=== PATIENT | female | born 1990 | race Caucasian/White ===

== ENCOUNTER 2017-10-08 07:26 | Inpatient (IN) | payer OTHER ==
[2017-10-08] MEDS ORDERED: BUTORPHANOL 1 MG/ML INJ IV PRN (07:47)
[2017-10-08] MEDS ORDERED: PROMETHAZINE 25 MG/ML VIAL IV PRN (07:47)
[2017-10-08] MEDS ORDERED: CARBOPROST TROME 250 MCG/ML IM PRN (07:47)
[2017-10-08] MEDS ORDERED: Ringers Lactate 1,000 ML IV PRN (07:47)
[2017-10-08] MEDS ORDERED: METHYLERGONOVINE 0.2MG/ML AMP IM PRN (07:47)
[2017-10-08] MEDS ORDERED: Ringers Lactate 1,000 ML IV SCH (08:00)
[2017-10-08] MEDS ORDERED: OXYTOCIN/LR 20 UNIT/1,000 ML BAG IV SCH (08:00)
[2017-10-08 08:09] LABS: RPR Titer ND
[2017-10-08 08:34] LABS: Urine Appearance CLEAR; Urine Bilirubin NEGATIVE (NEG); Urine Blood NEGATIVE (NEG); Urine Color YELLOW; Urine Glucose NEGATIVE (NEG); Urine Protein NEGATIVE (NEG); Urine Specific Gravity 1.015 (1.005-1.030); Urine pH 6.5 (5.0-7.0)
[2017-10-08 08:42] LABS: Urine Microscopic Reflex ORDER UMIC
[2017-10-08 08:43] LABS: Absolute Neutrophil 10.9 K/uL (1.8-8.0); Basophils % 0.4 % (0-1.3); Eosinophils % 1.6 % (0-4.4); Hematocrit 40.8 % (36.0-45.0); Lymphocytes % 19.9 % (15.3-44.8); MCH 33.7 pg (27.0-35.0); MCV 96.2 fL (80-100); MPV 8.5 fL (7.6-11.3); Monocytes % 6.5 % (3.3-12.3); RBC Red Blood Cell Count 4.24 M/uL (3.86-4.86)
[2017-10-08 08:58] LABS: Urine Bacteria <20 /HPF (<20); Urine RBC <5 /HPF (NONE SEEN)
[2017-10-08 08:59] LABS: Calcium Oxalate Crystals- Ur FEW (NONE SEEN); Urine Culture Reflex Order REFLEXED
[2017-10-08 09:26] VITALS: BMI 30.8
[2017-10-08] MEDS ORDERED: LIDOCAINE 2% INJ, 20 mL 20 ML ONE (19:01)
[2017-10-08] MEDS ORDERED: IBUPROFEN 200 MG TAB PO PRN (19:23)
[2017-10-08] MEDS ORDERED: Oxycodone HCl/Acetaminophen 1 TAB TAB PO PRN (19:23)
[2017-10-08] MEDS ORDERED: ONDANSETRON 4 MG (ODT) TAB PO PRN (19:23)
[2017-10-08] MEDS ORDERED: ACETAMINOPHEN 500 MG TAB PO PRN (19:23)
[2017-10-08] MEDS ORDERED: BISACODYL 10 MG RECTAL SUPP RECT PRN (19:23)
[2017-10-08] MEDS ORDERED: DOCUSATE NA/SENNA CONC 1 TAB PO PRN (19:23)
[2017-10-08] MEDS ORDERED: METHYLERGONOVINE 0.2 MG TAB PO PRN (19:23)
--- NOTE | 2017-10-08 22:34 | P.OBGYNHP ---
Certification for Inpatient Patient admitted to: Inpatient With expected LOS: >2 Midnights Patient will require the following post-hospital care: None Practitioner: I am a practitioner with admitting privileges, knowledge of patient current condition, hospital course, and medical plan of care. Services: Services provided to patient in accordance with Admission requirements found in Title 42 Section 412.3 of the Code of Federal Regulations Patient History Date of Service: 11/10/17 Reason for admission: induction of labor History of Present Illness: Patient is a 27-year-old 2 para 0010 who presents at 39 weeks and 3 days gestational 40 like a induction of labor. she is overall doing well. She has been complaining of contractions that are occurring very irregularly. She denies vaginal bleeding. She denies leakage of fluid. She reports good movements. She has obtained care with me beginning early in the 1st trimester. She had a drug screen done in the firtst trimester and was positive for marijuana. Since first visit she has had multiple drug screens done and they have been negative. She has also been following up [facility] for care. Ultrasound findings have been within normal. See record for further details. Allergies codeine Allergy (Intermediate, Verified 10/08/17 08:27) Hives/Rash Home Medications: Pnv Cmb#95/Ferrous Fumarate/FA [ Tablet] 1 each PO DAILY 10/08/17 - Past Medical/Surgical History Has patient received pneumonia vaccine in the past: No Diabetic: No -: SAB x1 -: Exploratory lap at age 16 -: Appendectomy - Social History Smoking Status: Former smoker Alcohol use: No CD- Drugs: No Caffeine use: Yes Place of Residence: Home Review of Systems 10-point ROS is otherwise unremarkable Physical Examination - Vital Signs Temperature: 97.6 F Blood Pressure: 106/60 Pulse: 74 Respirations: 18 - General General: Alert, Oriented x3, Mild distress HEENT: Atraumatic, Normocephalic Neck: Supple Respiratory: Normal air movement Cardiovascular: No edema, Normal pulses Capillary refill: <2 Seconds Breasts: Normal configuration Gastrointestinal: Other (Gravid) Neurological: Normal gait, Normal speech - Female Pelvic External genitalia: Normal Vagina: Normal, Bright, Moist Cervix: Dilation (2cm), Effacement (50%), station (-3) Uterus: Gravid, Firm Adnexa: Unable to evaluate - Obstetrics heart rate tracing: Category 2 Contractions: Other (irregular) Amniotic membrane: AROM (clear fluid noted ) Laboratory Data (last 24 hrs) 10/08/17 07:37: WBC 15.2 H, Hgb 14.3, Hct 40.8, Plt Count 319 Assessment and Plan - Plan Patient is a 27 y/o at 39 weeks and 3 days gestation who presents for elective induction of labor. Patient is GBS negative. Rupture of membranes performed. Epidural placement at patient's request. Continuous and maternal monitoring. Anticipate vaginal . Discharge Plan: Home Plan to discharge in: 48 Hours - Advance Directives Does patient have a Living Will: No Does patient have a Durable POA for Healthcare: No
--- NOTE | 2017-10-08 22:34 | P.OP ---
Date of Service: 10/08/17 Findings and Operative Technique Patient delivered a viable male in cephalic presentation on 10/08/17 at 18 :59. was delivered over a midline episiotomy. Once infant was delivered nose and mouth were suctioned with a suction bulb cord was clamped and cut. was then placed on mother's abdomen for skin to skin bonding. Attention was then turned to the placenta which was delivered at 7:01 p.m. placenta was examined and noted to be intact. Attention was then turned to the midline episiotomy which was repaired with a 3.0 and 2.0 Vicryl in the usual fashion. Apgars were 9 and 9. Weight was found to be 6 lb 15 oz. Estimated blood loss was 300 cc. Both mom and baby are doing well.
[2017-10-08 22:49] LABS: RPR (Rapid Plasma Reagin) NON-REACT (NON-REACT)
[2017-10-08] MEDS: Oxycodone HCl/Acetaminophen 1 TAB TAB PO PRN (23:05)
[2017-10-09 07:28] LABS: Absolute Lymphocytes (CBC) 3.3 K/uL (0.7-4.9); Absolute Monocytes 1.2 K/uL (0.1-1.3); Absolute Neutrophil 14.1 K/uL (1.8-8.0); Basophils % 0.2 % (0-1.3); Eosinophils % 0.5 % (0-4.4); Hematocrit 33.2 % (36.0-45.0); Lymphocytes % 17.5 % (15.3-44.8); MCH 35.2 pg (27.0-35.0); MCV 95.5 fL (80-100); MPV 7.8 fL (7.6-11.3); Monocytes % 6.6 % (3.3-12.3); RBC Red Blood Cell Count 3.47 M/uL (3.86-4.86)
[2017-10-09] MEDS: Oxycodone HCl/Acetaminophen 1 TAB TAB PO PRN ×2 (07:32→21:10)
[2017-10-09 10:06] LABS: Barbiturates NEGATIVE (NEGATIVE); Benzodiazepines NEGATIVE (NEGATIVE); Cocaine NEGATIVE (NEGATIVE); METHAMPHETAM NEGATIVE (NEGATIVE); Methadone NEGATIVE (NEGATIVE); Opiates NEGATIVE (NEGATIVE); Phencyclidine NEGATIVE (NEGATIVE); THC Cannibis NEGATIVE (NEGATIVE)
[2017-10-10 04:02] LABS: HBsAG Nonreactive (Nonreactive)
[2017-11-10 11:24] VITALS: BP 106/60; TEMP 97.6
--- NOTE | 2017-11-10 11:40 | P.DS ---
Admission Date: 10/08/17 Discharge Date: 10/09/17 Disposition: ROUTINE DISCHARGE Discharge Condition: GOOD Reason for Admission: induction of labor Brief History of Present Illness: Patient is a 27-year-old 2 para 0010 who presents at 39 weeks and 3 days gestational 40 like a induction of labor. she is overall doing well. She has been complaining of contractions that are occurring very irregularly. She denies vaginal bleeding. She denies leakage of fluid. She reports good movements. She has obtained care with pr beginning early in the 1st trimester. She had a drug screen done in the firtst trimester and was positive for marijuana. Since first visit she has had multiple drug screens done and they have been negative. She has also been following up [facility] for care. Ultrasound findings have been within normal. See record for further details. Hospital Course: patient did well following delivery. She is bonding well with baby. She has no pain. She is ambulating without difficulty She has not had any fevers. No chills. No nausea or vomiting. She is tolerating a regular diet. Vital Signs/Physical Exam: Temp Pulse Resp BP Pulse Ox 97.6 F 74 18 106/60 11/10/17 11:31 11/10/17 11:31 11/10/17 11:31 11/10/17 11:31 General: Alert, In no apparent distress HEENT: Atraumatic Neck: Supple Respiratory: Normal air movement Cardiovascular: No edema Laboratory Data at Discharge: WBC 18.7 K/uL (4.3-10.9) H D 10/09/17 06:58 Hgb 12.2 g/dL (12.0-15.0) 10/09/17 06:58 Hct 33.2 % (36.0-45.0) L D 10/09/17 06:58 Plt Count 303 K/uL (152-406) 10/09/17 06:58 Home Medications: Pnv Cmb#95/Ferrous Fumarate/FA [ Tablet] 1 each PO DAILY 10/08/17 Diet: Regular Activity: No lifting more than 10 lbs Followup: Andrzej Islas, [ACTIVE - CAN ADMIT] -
== END 2017-10-09 21:55 | disposition home or self-care (01) | DRG 775 ==
LOC: 2ND-WC 07:26
PROVIDERS: ADMIT Student in an Organized Health Care Education/Training Program; ATTEND Student in an Organized Health Care Education/Training Program
PROC: 10E0XZZ Delivery of Products of Conception, External Approach (ICD-10-PCS; principal; 2017-10-08)
PROC: 10907ZC Drainage of Amniotic Fluid, Therapeutic from Products of Conception, Via Natural or Artificial Opening (ICD-10-PCS; 2017-10-08)
PROC: 0W8NXZZ Division of Female Perineum, External Approach (ICD-10-PCS; 2017-10-08)
DX: O80 Encounter for full-term uncomplicated delivery (principal); Z3A.39 39 weeks gestation of pregnancy; Z37.0 Single live birth; Z87.891 Personal history of nicotine dependence; Z88.5 Allergy status to narcotic agent
CPT/HCPCS: 36415; 80307; 81003; 81015; 85025; 86592; 86901; 87086; 87088; 87340; 88307; J0595; J2210; J2590

== ENCOUNTER 2018-02-24 11:33 | Emergency (ER) | payer OTHER ==
[2018-02-24] MEDS ORDERED: PROMETHAZINE 25 MG/ML VIAL ONE (12:52)
[2018-02-24] MEDS ORDERED: NA CHLORIDE 0.9% 1,000 ML ONE (12:52)
--- NOTE | 2018-02-24 13:00 | RAD REPORT ---
EXAM DESCRIPTION: RAD - Chest Single View - 02/24/2018 12:42 pm CLINICAL HISTORY: Cough and congestion COMPARISON: April 2013 TECHNIQUE: AP portable chest image was obtained 1236 hours . FINDINGS: Lungs are clear. Heart and vasculature are normal. No measurable pleural effusion and no p neumothorax. No acute bony abnormality seen. No acute aortic findings suspected. IMPRESSION: No acute cardiopulmonary process. No significant interval change.
[2018-02-24 13:15] LABS: Absolute Lymphocytes (CBC) 1.6 K/uL (0.7-4.9); Absolute Neutrophil 4.4 K/uL (1.8-8.0); Basophils % 0.7 % (0-1.3); Eosinophils % 0.3 % (0-4.4); Hematocrit 48.6 % (36.0-45.0); Lymphocytes % 23.2 % (15.3-44.8); MPV 7.8 fL (7.6-11.3); Monocytes % 13.5 % (3.3-12.3); RBC Red Blood Cell Count 5.35 M/uL (3.86-4.86)
[2018-02-24 13:25] LABS: Potassium 3.7 mmol/L (3.5-5.1)
--- NOTE | 2018-02-24 14:00 | ER ---
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 Transition of care: patient was not received from another setting of care. Onset of symptoms was February 24, 2018. Risk Assessment: Do you want to hurt yourself or someone else? Patient reports no desire to harm self or others. Initial Sepsis Screen: Does the patient meet any 2 criteria? No. Patient's initial sepsis screen is negative. Care prior to arrival: None. 12:00 Method Of Arrival: Ambulatory ph 12:00 Acuity: JAVIER 3 ph 14:21 Initial Sepsis Screen: Does the patient have a suspected source of infection? No. bp Patient's initial sepsis screen is negative. Triage Assessment: 14:18 General: Appears in no apparent distress. comfortable, Behavior is cooperative, bp appropriate for age, anxious. Respiratory: Reports cough that is Onset: The symptoms/episode began/occurred at an unknown time. the patient has mild shortness of breath. 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 - Social history:: Smoking status: Patient/guardian denies using tobacco. - Ebola Screening: : No symptoms or risks identified at this time. Screenin:16 Abuse screen: Denies threats or abuse. Denies injuries from another. Nutritional bp screening: No deficits noted. Tuberculosis screening: No symptoms or risk factors identified. Fall Risk None identified. Assessment: 12:14 General: Appears in no apparent distress. comfortable, Behavior is calm, cooperative, bp appropriate for age. Pain: Denies pain. Neuro: Level of Consciousness is awake, alert, obeys commands, Oriented to person, place, time, situation, Appropriate for age. Cardiovascular: Rhythm is sinus tachycardia. Respiratory: Airway is patent Respiratory effort is even, labored, Breath sounds with crackles bilaterally. GI: No signs and/or symptoms were reported involving the gastrointestinal system. : No signs and/or symptoms were reported regarding the genitourinary system. EENT: Nares with drainage noted. Derm: No deficits noted. Musculoskeletal: Circulation, motion, and sensation intact. Range of motion: intact in all extremities. Vital Signs: 12:02 Pulse 125; Resp 24; Temp 97.6(TE); Pulse Ox 98% on R/A; Weight 65.32 kg; Height 5 ft. 2 ph in. (157.48 cm); 14:17 BP 131 / 54; Pulse 100; Resp 24; Temp 97.9; Pulse Ox 99% ; bp 12:02 Body Mass Index 26.34 (65.32 kg, 157.48 cm) ph ED Course: 11:36 Patient arrived in ED. rg4 11:53 Mychal Henderson MD is Attending Physician. kdr 11:59 Marvel Barrera RN is Primary Nurse. bp 12:02 Triage completed. ph 12:04 Arm band placed on. ph 12:16 Patient has correct armband on for positive identification. Bed in low position. Call bp light in reach. Side rails up X2. Adult w/ patient. 12:41 X-ray completed. Portable x-ray completed in exam room. Patient tolerated procedure mh1 well. 12:42 CXR XRAY In Process Unspecified. EDMS 12:45 Inserted saline lock: 20 gauge in right antecubital area, using aseptic technique. bp Blood collected. 14:19 No provider procedures requiring assistance completed. IV discontinued, intact, bp bleeding controlled, No redness/swelling at site. Pressure dressing applied. Administered Medications: 12:45 Drug: NS 0.9% 1000 ml Route: IV; Rate: 1 bolus; Site: right antecubital; bp 14:00 Follow up: IV Status: Completed infusion; IV Intake: 1000ml bp 12:45 Drug: Phenergan 12.5 mg Route: IVP; Site: right antecubital; bp 14:00 Follow up: Response: No adverse reaction; Nausea is decreased bp 14:05 Drug: Augmentin 875 mg Route: PO; bp 14:18 Follow up: Response: Medication administered at discharge. bp Intake: 14:00 IV: 1000ml; Total: 1000ml. bp Outcome: 13:59 Discharge ordered by . kdr 14:20 Discharged to home ambulatory, with family. bp 14:20 Condition: stable 14:20 Discharge instructions given to patient, family, Instructed on discharge instructions, follow up and referral plans. medication usage, Demonstrated understanding of instructions, follow-up care, medications, Prescriptions given X 1. 14:23 Patient left the ED. bp Signatures: Dispatcher [employer] EDMS Mychal Henderson MD MD kdr Harvey, Martha mh1 Monique Strauss RN RN Rachel Metzger 4 Marvel Barrera, RN RN bp
--- NOTE | 2018-02-24 14:00 | EDPHYS ---
Physician Documentation [facility] Name: Jonatan Gray Age: 28 yrs Sex: Female : 1990 Arrival Date: 02/24/2018 Time: 11:36 Bed 18 Private MD: ED Physician Mychal Henderson HPI: 02/24 14:42 This 28 yrs old Female presents to ER via Ambulatory with complaints of kdr Breathing Difficulty, Cough. 14:42 The patient has shortness of breath at rest, with light activity. Onset: The kdr symptoms/episode began/occurred gradually, 4 day(s) ago. Duration: The symptoms are continuous, and are steadily getting worse. The patient's shortness of breath is aggravated by coughing, exertion, light activity. Associated signs and symptoms: Pertinent positives: non-productive cough, fever, nausea. Severity of symptoms: At their worst the symptoms were moderate in the emergency department the symptoms. The patient has not experienced similar symptoms in the past. The patient has been recently seen by a physician:. 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 - Social history:: Smoking status: Patient/guardian denies using tobacco. - Ebola Screening: : No symptoms or risks identified at this time. ROS: 14:42 Constitutional: Negative for chills, and weight loss - has had subjective fever Eyes: kdr Negative for injury, pain, redness, and discharge, Neck: Negative for injury, pain, and swelling, Cardiovascular: Negative for chest pain, palpitations, and edema, Abdomen/GI: Negative for abdominal pain, nausea, vomiting, diarrhea, and constipation, Back: Negative for injury and pain, : Negative for injury, bleeding, discharge, and swelling, MS/Extremity: Negative for injury and deformity, Skin: Negative for injury, rash, and discoloration, Neuro: Negative for headache, weakness, numbness, tingling, and seizure activity. Psych: Negative for depression, anxiety, suicide ideation, homicidal ideation, and hallucinations, Allergy/Immunology: Negative for hives, rash, and allergies, Endocrine: Negative for neck swelling, polydipsia, polyuria, polyphagia, and marked weight changes, Hematologic/Lymphatic: Negative for swollen nodes, abnormal bleeding, and unusual bruising. 14:42 Respiratory: Positive for cough, "sounds productive", shortness of breath, wheezing, Negative for hemoptysis, orthopnea, pleurisy. Exam: 14:42 Constitutional: This is a well developed, well nourished patient who is awake, alert, kdr and in no acute distress. Head/Face: Normocephalic, atraumatic. Eyes: Pupils equal round and reactive to light, extra-ocular motions intact. Lids and lashes normal. Conjunctiva and sclera are non-icteric and not injected. Cornea within normal limits. Periorbital areas with no swelling, redness, or edema. Neck: Trachea midline, no thyromegaly or masses palpated, and no cervical lymphadenopathy. Supple, full range of motion without nuchal rigidity, or vertebral point tenderness. No Meningismus. Chest/axilla: Normal chest wall appearance and motion. Nontender with no deformity. No lesions are appreciated. Cardiovascular: Regular rate and rhythm with a normal S1 and S2. No gallops, murmurs, or rubs. Normal PMI, no JVD. No pulse deficits. Abdomen/GI: Soft, non-tender, with normal bowel sounds. No distension or tympany. No guarding or rebound. No evidence of tenderness throughout. Back: No spinal tenderness. No costovertebral tenderness. Full range of motion. Skin: Warm, dry with normal turgor. Normal color with no rashes, no lesions, and no evidence of cellulitis. MS/ Extremity: Pulses equal, no cyanosis. Neurovascular intact. Full, normal range of motion. Neuro: Awake and alert, GCS 15, oriented to person, place, time, and situation. Cranial nerves II-XII grossly intact. Motor strength 5/5 in all extremities. Sensory grossly intact. Cerebellar exam normal. Normal gait. Psych: Awake, alert, with orientation to person, place and time. Behavior, mood, and affect are within normal limits. 14:42 Respiratory: mild respiratory distress is noted, Respirations: no acute changes, Breath sounds: rales, rhonchi, wheezing: that is mild, is heard diffusely. Vital Signs: 12:02 Pulse 125; Resp 24; Temp 97.6(TE); Pulse Ox 98% on R/A; Weight 65.32 kg; Height 5 ft. 2 ph in. (157.48 cm); 14:17 BP 131 / 54; Pulse 100; Resp 24; Temp 97.9; Pulse Ox 99% ; bp 12:02 Body Mass Index 26.34 (65.32 kg, 157.48 cm) ph MDM: 13:59 Patient medically screened. kdr 14:42 Data reviewed: vital signs, nurses notes, lab test result(s), radiologic studies. kdr Counseling: I had a detailed discussion with the patient and/or guardian regarding: the historical points, exam findings, and any diagnostic results supporting the discharge/admit diagnosis, lab results, radiology results, the need for outpatient follow up. 02/24 12:31 Order name: CBC with Diff; Complete Time: 13:20 kdr 02/24 12:31 Order name: Chem 7; Complete Time: 13:47 kdr 02/24 12:31 Order name: CXR XRAY; Complete Time: 13:20 kdr Administered Medications: 12:45 Drug: NS 0.9% 1000 ml Route: IV; Rate: 1 bolus; Site: right antecubital; bp 14:00 Follow up: IV Status: Completed infusion; IV Intake: 1000ml bp 12:45 Drug: Phenergan 12.5 mg Route: IVP; Site: right antecubital; bp 14:00 Follow up: Response: No adverse reaction; Nausea is decreased bp 14:05 Drug: Augmentin 875 mg Route: PO; bp 14:18 Follow up: Response: Medication administered at discharge. bp Disposition: 02/24/18 13:59 Discharged to Home. Impression: Bronchitis, not specified as acute or chronic, Cough. - Condition is Stable. - Discharge Instructions: Cool Mist Vaporizer, Acute Bronchitis, Nuaq-se-[id number], Upper Respiratory Infection, Adult, Refd-vu-Aukk, Cough, Adult, Rjil-ov-Fgpy. - Prescriptions for Promethazine VC 6.25- 5 mg/5 mL Oral syrup - take 5 milliliter by ORAL route every 4 hours As needed as needed; 200 milliliter. - Medication Reconciliation Form, Thank You Letter, Antibiotic Education, Prescription Opioid Use form. - Follow up: Private Physician; When: 2 - 3 days; Reason: If symptoms return, Further diagnostic work-up, Recheck today's complaints, Continuance of care, Re-evaluation by your physician. - Problem is an ongoing problem. - Symptoms have improved. Signatures: Dispatcher [employer] EDMS Mychal Henderson MD MD kdr Monique Strauss RN RN Marvel Barrera RN RN bp Corrections: (The following items were deleted from the chart) 14:23 13:59 02/24/2018 13:59 Discharged to Home. Impression: Bronchitis, not specified as bp acute or chronic; Cough. Condition is Stable. Forms are Medication Reconciliation Form, Thank You Letter, Antibiotic Education, Prescription Opioid Use. Follow up: Private Physician; When: 2 - 3 days; Reason: If symptoms return, Further diagnostic work-up, Recheck today's complaints, Continuance of care, Re-evaluation by your physician. Problem is an ongoing problem. Symptoms have improved. kdr 14:49 14:42 The patient has not recently seen a physician, [facility] kdr
[2018-02-24] MEDS ORDERED: AMOX/K CLAV 875 MG TAB ONE (14:13)
[2018-02-24 14:31] VITALS: BP 131/54; TEMP 97.9; O2SAT 99
== END 2018-02-24 14:23 | disposition home or self-care (01) ==
LOC: ER 11:33
DX: J40 Bronchitis, not specified as acute or chronic (principal)
CPT/HCPCS: 36415; 71045; 80048; 85025; 96361; 96374; 99284; J2550; J7030

== ENCOUNTER 2018-10-16 03:47 | Inpatient (IN) | payer OTHER ==
[2018-10-16] MEDS ORDERED: METHYLERGONOVINE 0.2MG/ML AMP IM PRN (05:45)
[2018-10-16] MEDS ORDERED: BUTORPHANOL 1 MG/ML INJ IV PRN (05:45)
[2018-10-16] MEDS ORDERED: PENICILLIN 5 MU in NA CHLORIDE 0.9% 100 ML IV ONE (05:45)
[2018-10-16] MEDS ORDERED: MIDAZOLAM HCL 2 MG/2 ML INJ IV PRN (05:45)
[2018-10-16] MEDS ORDERED: PROMETHAZINE 25 MG/ML VIAL IM PRN (05:45)
[2018-10-16] MEDS ORDERED: MEPERIDINE HCL 25 MG/0.5 ML IV PRN (05:45)
[2018-10-16] MEDS ORDERED: Ringers Lactate 1,000 ML IV PRN (05:45)
[2018-10-16] MEDS ORDERED: LIDOCAINE 1% MPF 30 ML VIAL SQ ONE (05:49)
[2018-10-16] MEDS ORDERED: FENTANYL CITR 100 MCG/2 ML IV PRN (05:52)
[2018-10-16] MEDS ORDERED: FENTANYL/BUPIVACAINE/NS/PF 200 MCG/100 ML BAG EP PRN (05:52)
[2018-10-16] MEDS ORDERED: BUPIVACAINE 0.25% PF 10 ML VIAL IV PRN (05:52)
[2018-10-16] MEDS ORDERED: LIDOCAINE 1% MPF 30 ML VIAL SQ PRN (05:54)
[2018-10-16] MEDS ORDERED: Ringers Lactate 1,000 ML IV SCH (06:00)
[2018-10-16 06:31] LABS: Urine Appearance CLEAR; Urine Bilirubin NEGATIVE (NEG); Urine Blood NEGATIVE (NEG); Urine Color YELLOW; Urine Glucose NEGATIVE (NEG); Urine Protein NEGATIVE (NEG)
[2018-10-16] MEDS ORDERED: OXYTOCIN/LR 20 UNIT/1,000 ML BAG IV ONE (06:37)
[2018-10-16 06:44] LABS: Urine Microscopic Reflex ORDER UMIC
[2018-10-16 06:45] LABS: Urine Bacteria <20 /HPF (<20); Urine Culture Reflex Order REFLEXED; Urine RBC <5 /HPF (NONE SEEN)
[2018-10-16 06:55] LABS: Absolute Lymphocytes (CBC) 2.9 K/uL (0.7-4.9); Basophils % 0.4 % (0-1.3); Hematocrit 38.8 % (36.0-45.0); Lymphocytes % 19.5 % (15.3-44.8); MPV 7.6 fL (7.6-11.3); RBC Red Blood Cell Count 4.01 M/uL (3.86-4.86)
[2018-10-16] MEDS ORDERED: OXYTOCIN/LR 20 UNIT/1,000 ML BAG IV SCH ×2 (07:00→13:00)
[2018-10-16] MEDS ORDERED: PENICILLIN 2.5 MU in NA CHLORIDE 0.9% 100 ML IV SCH (09:00)
--- NOTE | 2018-10-16 09:45 | RAD REPORT ---
EXAM DESCRIPTION: RAD - Abdomen Single View - 10/16/2018 5:31 am CLINICAL HISTORY: position. TECHNIQUE: A single AP supine x-ray of the abdomen was performed on 10/16/2018 at 5:26 AM. COMPARISON: None. FINDINGS: An advanced aged fetus is present in cephalic presentation with the spine to the left. The bowel is displaced superiorly. The bowel gas pattern is nonspecific and nonobstructive. No acute abn ormalities are identified. IMPRESSION: Advanced aged fetus in cephalic presentation with the spine to the left. Electronically signed by: Veronika Lowe DO 10/16/2018 5:51 AM CDT Due to temporary technical issues with the PACS/Fluency reporting system, reports are being signed by the in house radiologist as a courtesy to ensure prompt reporting. The interpreting radiologist is f ully responsible for the content of the report.
--- NOTE | 2018-10-16 12:08 | PREOPHP ---
Date of Admission: 10/16/2018 Jonatan Gray is 28-year-old, 2, para 1, at 37 weeks and 3 days, came in, in early labor. She is now 3.5 cm, 60% to 70% effaced, vertex, well applied. Cervix is still posterior, merritt every 2 to 3 minutes. Rupture of membranes, clear fluid. We will start light Pitocin augmentation. Patient requests no epidural, says she will possibly take IV medications. First delivery was natura l childbirth. She wants to do the same. Allergic to codeine. Rh positive. Immune to Rubella. She has negative beta strep screen, but that was not known on admission. Patient was given at her reque st 1 dose of penicillin, was stopped that at this point. Full labor talk given. Anticipate delivery sometime later today. JIM/STAR Voice ID: [id number]
[2018-10-16] MEDS ORDERED: ACETAMINOPHEN 500 MG TAB PO PRN (12:36)
[2018-10-16] MEDS ORDERED: DOCUSATE NA/SENNA CONC 1 TAB PO PRN (12:36)
[2018-10-16] MEDS ORDERED: DIPHENHYDRAMINE 25 MG TAB/CAP PO PRN (12:36)
[2018-10-16] MEDS ORDERED: BISACODYL 10 MG RECTAL SUPP RECT PRN (12:36)
[2018-10-16] MEDS ORDERED: IBUPROFEN 200 MG TAB PO PRN (12:36)
[2018-10-16] MEDS ORDERED: Oxycodone HCl/Acetaminophen 1 TAB TAB PO PRN ×2 (12:36)
[2018-10-16 14:45] VITALS: BMI 29.9
[2018-10-16 21:53] LABS: RPR (Rapid Plasma Reagin) NON-REACT (NON-REACT)
--- NOTE | 2018-10-16 23:50 | OP ---
Surgeon: Maurice Edmond MD Preoperative Diagnoses: A 28-year-old, 2, para 1, 37 weeks 5 days, followed antepartum with by Dr. Islas without complications admitted to 37 weeks and 5 days, in active labor, RH positive, imm une to Rubella. Initially beta strep screen was not known. Patient was given 1 dose of penicillin, then we had her records faxed to us, and her strep status was negative, and therefore, no more penici llin was given. Description Of Procedure: During the labor, at her request, she received Stadol 1 mg IV x2, Phenerga n 25 mg IM x2. Rupture of membranes at approximately 3.5 cm. After achieving 6 cm, went rapidly to complete. Second stage of 15 minutes or less. Spontaneous vaginal delivery of an estimated 6-1/2-po und to the possibly 7-pound male infant, Apgars 9 and 9. Nuchal cord x1 loosely. Small midline firs t-degree laceration sutured with 2-0 chromic after local infiltration. 3 stitches. One first-degree laceration on the left labia minora, 1 [id number] stitch 2-0 chromic after local infiltration. Schultze delivery of placenta, which was inspected and noted be intact and normal. Less than 300 cc blood loss. Patient tolerated all procedures well. Final Diagnoses: Term intrauterine , 37 weeks 5 days, spontaneous labor, vaginal delivery, nuchal cord x1. Penicillin administered x1 dose. JIM/STAR Voice ID: [id number] Report ID: [id number]
[2018-10-17 15:46] VITALS: BP 110/70; TEMP 98
--- NOTE | 2018-10-19 09:40 | PN ---
The patient has had her second dose of Stadol IV. Phenergan IM. Baby still has good variability. P atient was 6 cm when checked by the nurse within the last 20 minutes or so. She started to feel rect al pressure, I think we are getting close to getting into the active phase and should start making mo re rapid progress. Doing well with her breathing techniques. JIM/STAR Voice ID: [id number] Report ID: [id number]
--- NOTE | 2018-10-19 09:44 | DS ---
Date of Discharge: 10/17/2018 This 28-year-old 2, para 1, came in active labor, 37 weeks and 5 days, delivered spontaneousl y of an estimated 6.5 to 7 pounds male , Apgars 9 and 9. Local infiltration for repair of 2 sm all first-degree lacerations, Schultze delivery of the placenta, 300 cc blood loss or less. Baby was noted to have a nuchal cord x1 loosely at the time of delivery. When patient came in, beta strep st atus was not known. She received 1 dose of penicillin. After which she was noted that she was beta strep negative and no further antibiotics were given. ; afebrile, ambulating and voiding. Lochia is normal. Inspection of the stitches showed no problems this morning. Patient will be dism issed later today. She is to call Dr. Islas's office for further instructions on Friday. She reques ts prescription for narcotics dismissal so we will give her tramadol. She knows this is transferred through the breast-milk and she may elect to take Motrin instead. Final Diagnoses: Term intrauterine 37 weeks 5 days. Vaginal delivery. JIM/STAR Voice ID: [id number] Report ID: [id number]
[2018-10-20 03:46] LABS: HBsAG Nonreactive (Nonreactive)
== END 2018-10-17 15:35 | disposition home or self-care (01) | DRG 807 ==
LOC: L&D 03:47 → 2ND-WC 05:47
PROVIDERS: ADMIT Specialist; ATTEND Specialist
PROC: 10907ZC Drainage of Amniotic Fluid, Therapeutic from Products of Conception, Via Natural or Artificial Opening (ICD-10-PCS; principal; 2018-10-16)
PROC: 10E0XZZ Delivery of Products of Conception, External Approach (ICD-10-PCS; 2018-10-16)
DX: O70.0 First degree perineal laceration during delivery (principal); Z37.0 Single live birth; O69.81X0 Labor and delivery complicated by cord around neck, without compression, not applicable or unspecified; Z3A.37 37 weeks gestation of pregnancy
CPT/HCPCS: 36415; 74018; 81003; 81015; 85025; 86592; 86850; 86900; 86901; 87086; 87088; 87340; J0595; J2175; J2210; J2550; J2590

== ENCOUNTER 2019-04-24 18:26 | Emergency (ER) | payer OTHER ==
--- NOTE | 2019-04-24 18:53 | EDPHYS ---
Physician Documentation [facility] Name: Jonatan Gray Age: 29 yrs Sex: Female : 1990 Arrival Date: 04/24/2019 Time: 18:29 Bed 24 Private MD: ED Physician Arya Graves HPI: 18:48 This 29 yrs old Female presents to ER via Ambulatory with complaints of Post la1 , Swollen Vein. 18:48 The patient or guardian complains of pain, that is acute, swelling, tenderness. The la1 complaints affect the dorsal aspect of right forearm. Onset: The symptoms/episode began/occurred 3 day(s) ago. Treatment prior to arrival includes: no previous treatment. Modifying factors: The symptoms are alleviated by nothing. the symptoms are aggravated by palpation. Associated signs and symptoms: The patient has no apparent associated signs or symptoms. Severity of symptoms: At their worst the symptoms were very mild. The patient has experienced a previous episode. 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 - Social history:: Smoking status: Patient reports the use of cigarette tobacco products, smokes one-half pack cigarettes per day. ROS: 18:49 Constitutional: Negative for fever, chills, and weight loss, Eyes: Negative for injury, la1 pain, redness, and discharge, ENT: Negative for injury, pain, and discharge, Neck: Negative for injury, pain, and swelling, Cardiovascular: Negative for chest pain, palpitations, and edema, Respiratory: Negative for shortness of breath, cough, wheezing, and pleuritic chest pain, Abdomen/GI: Negative for abdominal pain, nausea, vomiting, diarrhea, and constipation, Back: Negative for injury and pain, : Negative for injury, bleeding, discharge, and swelling. 18:49 MS/extremity: Positive for pain, swelling, tenderness, of the dorsal aspect of right forearm. 18:49 Skin: Positive for erythema, of the dorsal aspect of right forearm. Exam: 18:50 Constitutional: This is a well developed, well nourished patient who is awake, alert, la1 and in no acute distress. Head/Face: Normocephalic, atraumatic. Eyes: Pupils equal round and reactive to light, extra-ocular motions intact. Lids and lashes normal. Conjunctiva and sclera are non-icteric and not injected. Cornea within normal limits. Periorbital areas with no swelling, redness, or edema. ENT: Mucous membranes moist. Cardiovascular: no JVD Respiratory: No increased work of breathing. 18:50 Musculoskeletal/extremity: ROM: no acute changes, full active range of motion, full passive range of motion, Pulses: noted to be 3+ in the right radial artery and left radial artery, Sensation intact. 18:50 Skin: abscess, that is small, approximately 2 cm(s), of the dorsal aspect of right forearm, cellulitis, that is mild, induration, is not appreciated. Vital Signs: 18:44 BP 131 / 91; Pulse 75; Resp 18; Temp 97.2; Pulse Ox 100% on R/A; Weight 61.23 kg (R); aj1 Height 5 ft. 2 in. (157.48 cm) (R); Pain 7/10; 18:44 Body Mass Index 24.69 (61.23 kg, 157.48 cm) aj1 MDM: 18:42 Patient medically screened. la1 18:51 Data reviewed: vital signs, nurses notes, and as a result, I will discharge patient. la1 Data interpreted: Pulse oximetry: on room air is 100 %. Interpretation: normal. Counseling: I had a detailed discussion with the patient and/or guardian regarding: the historical points, exam findings, and any diagnostic results supporting the discharge/admit diagnosis, the need for outpatient follow up, a family practitioner, to return to the emergency department if symptoms worsen or persist or if there are any questions or concerns that arise at home. Administered Medications: No medications were administered Disposition: 04/24 18:04 Co-signature as Attending Physician, Arya Graves MD I agree with the assessment and allan plan of care. Disposition: 04/24/19 18:52 Discharged to Home. Impression: Cellulitis of right upper limb. - Condition is Stable. - Discharge Instructions: Cellulitis, Adult. - Prescriptions for Keflex 500 mg Oral Capsule - take 1 capsule by ORAL route every 6 hours for 10 days; 40 capsule. - Medication Reconciliation Form, Thank You Letter, Antibiotic Education form. - Follow up: Private Physician; When: 2 - 3 days; Reason: Recheck today's complaints, Re-evaluation by your physician. - Problem is new. - Symptoms are unchanged. Signatures: Jannet Mckeon RN RN aj1 Arya Graves MD MD cha Attema, Lee, CIVIL RIGHTS INVESTIGATOR-C CIVIL RIGHTS INVESTIGATOR-Cla1 Corrections: (The following items were deleted from the chart) 19:18 18:52 04/24/2019 18:52 Discharged to Home. Impression: Cellulitis of right upper limb. aj1 Condition is Stable. Forms are Medication Reconciliation Form, Thank You Letter, Antibiotic Education, Prescription Opioid Use. Follow up: Private Physician; When: 2 - 3 days; Reason: Recheck today's complaints, Re-evaluation by your physician. Problem is new. Symptoms are unchanged. la1
--- NOTE | 2019-04-24 18:53 | ER ---
Nurse's Notes [facility] Name: Jonatan Gray Age: 29 yrs Sex: Female : 1990 Arrival Date: 04/24/2019 Time: 18:29 Bed 24 Private MD: Diagnosis: Cellulitis of right upper limb Presentation: 18:44 Chief complaint: Patient states: Redness and swelling to the right forearm that started aj1 3 days ago. States that she had similar redness to the same area 6 months ago after receiving IV Phenergan. States that she has not had any IV medications since that Phenergan. Denies fever. Coronavirus screen: The patient has NOT traveled to [place] in the past 14 days. Ebola Screen: Patient denies travel to an Ebola-affected area in the 21 days before illness onset. Initial Sepsis Screen: Does the patient meet any 2 criteria? No. Patient's initial sepsis screen is negative. Does the patient have a suspected source of infection? Yes: Skin breakdown/wound. Risk Assessment: Do you want to hurt yourself or someone else? Patient reports no desire to harm self or others. 18:44 Method Of Arrival: Ambulatory aj1 18:44 Acuity: JAVIER 3 aj1 Triage Assessment: 18:47 General: Appears in no apparent distress. comfortable, Behavior is calm, cooperative, aj1 appropriate for age. Pain: Complains of pain in dorsal aspect of right forearm. 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 - Social history:: Smoking status: Patient reports the use of cigarette tobacco products, smokes one-half pack cigarettes per day. Screenin:48 Abuse screen: Denies threats or abuse. Denies injuries from another. Nutritional aj1 screening: No deficits noted. Tuberculosis screening: No symptoms or risk factors identified. Assessment: 18:48 General: Appears in no apparent distress. comfortable, Behavior is calm, cooperative, aj1 appropriate for age. Pain: Complains of pain in dorsal aspect of right forearm Pain does not radiate. Pain currently is 7 out of 10 on a pain scale. Quality of pain is described as aching. Neuro: Level of Consciousness is awake, alert, obeys commands, Oriented to person, place, time, situation. Cardiovascular: Patient's skin is warm and dry. Respiratory: Airway is patent Respiratory effort is even, unlabored, Respiratory pattern is regular, symmetrical. GI: No signs and/or symptoms were reported involving the gastrointestinal system. : No signs and/or symptoms were reported regarding the genitourinary system. EENT: No signs and/or symptoms were reported regarding the EENT system. Derm: redness and swelling noted to right forearm. Musculoskeletal: No signs and/or symptoms reported regarding the musculoskeletal system. Circulation, motion, and sensation intact. Vital Signs: 18:44 BP 131 / 91; Pulse 75; Resp 18; Temp 97.2; Pulse Ox 100% on R/A; Weight 61.23 kg (R); aj1 Height 5 ft. 2 in. (157.48 cm) (R); Pain 7/10; 18:44 Body Mass Index 24.69 (61.23 kg, 157.48 cm) aj1 ED Course: 18:29 Patient arrived in ED. cl3 18:32 River Stanley [facility] la1 18:32 Arya Graves MD is Attending Physician. la1 18:44 Jannet Mckeon RN is Primary Nurse. aj1 18:46 Triage completed. aj1 18:47 Arm band placed on. aj1 18:48 Patient has correct armband on for positive identification. Bed in low position. Call aj1 light in reach. Side rails up X 1. 18:48 No provider procedures requiring assistance completed. aj1 19:17 Patient did not have IV access during this emergency room visit. aj1 Administered Medications: No medications were administered Outcome: 18:52 Discharge ordered by . la1 19:17 Discharged to home ambulatory. aj1 19:17 Condition: good 19:17 Discharge instructions given to patient, Instructed on discharge instructions, follow up and referral plans. medication usage, Demonstrated understanding of instructions, follow-up care, medications, Prescriptions given X 1. 19:18 Patient left the ED. aj1 Signatures: Jannet Mckeon RN RN aj1 River Stanley FNP-C FNP-[facility] Suresh, Charde cl3
[2019-04-24 19:46] VITALS: BP 131/91; TEMP 97.2; O2SAT 100
== END 2019-04-24 19:18 | disposition home or self-care (01) ==
LOC: ER 18:26
DX: L03.113 Cellulitis of right upper limb (principal); Z88.6 Allergy status to analgesic agent; F17.210 Nicotine dependence, cigarettes, uncomplicated
CPT/HCPCS: 99282

== ENCOUNTER 2021-08-10 07:22 | Emergency (ER) | payer OTHER ==
[2021-08-10] MEDS ORDERED: ONDANSETRON 4 MG/2 ML VIAL ONE (07:54)
[2021-08-10] MEDS ORDERED: MORPHINE 4 MG/ML SYR ONE (07:54)
[2021-08-10] MEDS ORDERED: NA CHLORIDE 0.9% 1,000 ML ONE (07:54)
[2021-08-10 08:00] LABS: Urine Blood 3+ (Negative); Urine Glucose Negative (Negative); Urine Protein 1+ (Negative); Urine Specific Gravity >=1.030 (1.005-1.030)
[2021-08-10 08:11] LABS: Absolute Lymphocytes (CBC) 2.5 K/uL (0.7-4.9); Hematocrit 46.3 % (36.0-45.0); Lymphocytes % 18.2 % (15.3-44.8); RBC Red Blood Cell Count 5.01 M/uL (3.86-4.86)
[2021-08-10 08:49] LABS: Urine Bacteria <20 /HPF (<20); Urine RBC >50 /HPF (NONE SEEN)
[2021-08-10 09:17] LABS: Albumin 3.7 g/dL (3.4-5.0); Bilirubin Total 0.3 mg/dL (0.2-1.0); Potassium 3.1 mmol/L (3.5-5.1); Protein, Total 7.6 g/dL (6.4-8.2)
--- NOTE | 2021-08-10 09:48 | RAD REPORT ---
EXAM DESCRIPTION: CT - Abdomen Pelvis W Contrast - 08/10/2021 9:34 am CLINICAL HISTORY: RLQ abdominal pain COMPARISON: CT ABD PELVIS W CONTRAST dated 05/18/2013 TECHNIQUE: Biphasic, helical CT imaging of the abdomen and pelvis was performed following 100 ml non -ionic IV contrast. No oral contrast administered. All CT scans are performed using dose optimization technique as appropriate and may include automated exposure control or mA/KV adjustment according to patient size. FINDINGS: No suspicious findings in the lung bases. The liver, spleen, and pancreas show no suspicious findings. Gallbladder and biliary tree are also wi thout suspicious finding. Symmetric renal function is seen with no hydronephrosis or suspicious renal mass. No pyelonephritis o r acute parenchymal process. No bladder abnormalities. No adrenal abnormalities. Uterus and ovaries s how no suspicious findings. No fallopian tube dilatation. No dilated bowel loops or bowel wall thickening. Moderately large stool volume distends the rectum. M oderate stool volume present throughout the colon filling but not dilating the large intestine. The a ppendix is normal. No free air, free fluid or inflammatory stranding. No hernia, mass or bulky lymphadenopathy. No suspicious bony findings. IMPRESSION: No appendicitis or other acute GI finding identifiable. Patient has a large colonic stoo l volume that fills but does not dilate the colon from cecum to sigmoid segments. Rectum is distended by stool. 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 No acute or emergent finding.
--- NOTE | 2021-08-10 10:09 | EDPHYS ---
Physician Documentation [facility] Name: Jonatan Gray Age: 31 yrs Sex: Female : 1990 Arrival Date: 08/10/2021 Time: 07:22 Bed 19 Private MD: ED Physician Aleah Rios HPI: 08/10 08:07 This 31 yrs old Female presents to ER via Wheelchair with complaints of Abdominal Pain, ma2 Vomiting. 08:07 31-year-old female presents with right lower quadrant abdominal pain for 1 day, ma2 constant unchanged, associated vomiting, patient also having her period at this time.. 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 - Social history:: Smoking status: Smoking status: Patient/guardian denies using tobacco, Stopped _ months ago 6. - Family history:: not pertinent. ROS: 08:07 Constitutional: Negative for fever, chills, and weight loss. ma2 08:07 All other systems are negative. Exam: 08:07 Constitutional: This is a well developed, well nourished patient who is awake, alert, ma2 and in no acute distress. Chest/axilla: Normal chest wall appearance and motion. Nontender with no deformity. No lesions are appreciated. Cardiovascular: Regular rate and rhythm with a normal S1 and S2. No gallops, murmurs, or rubs. Normal PMI, no JVD. No pulse deficits. Respiratory: Lungs have equal breath sounds bilaterally, clear to auscultation and percussion. No rales, rhonchi or wheezes noted. No increased work of breathing, no retractions or nasal flaring. Abdomen/GI: Soft, non-tender, with normal bowel sounds. No distension or tympany. No guarding or rebound. No evidence of tenderness throughout. Back: No spinal tenderness. No costovertebral tenderness. Full range of motion. Skin: Warm, dry with normal turgor. Normal color with no rashes, no lesions, and no evidence of cellulitis. MS/ Extremity: Pulses equal, no cyanosis. Neurovascular intact. Full, normal range of motion. Neuro: Awake and alert, GCS 15, oriented to person, place, time, and situation. Cranial nerves II-XII grossly intact. Motor strength 5/5 in all extremities. Sensory grossly intact. Cerebellar exam normal. Normal gait. Vital Signs: 07:38 BP 135 / 94; Pulse 88; Resp 16; Temp 97.0; Pulse Ox 100% on R/A; iw 09:12 BP 118 / 81; Pulse 41; Resp 17; Pulse Ox 99% on R/A; garcia MDM: 07:39 Patient medically screened. ma2 10:08 Differential diagnosis: appendicitis, viral gastroenteritis, gastroenteritis. Data ma2 reviewed: vital signs, nurses notes. Counseling: I had a detailed discussion with the patient and/or guardian regarding: the historical points, exam findings, and any diagnostic results supporting the discharge/admit diagnosis, the presence of at least one elevated blood pressure reading (>120/80) during this emergency department visit, the need for outpatient follow up. Response to treatment: the patient's symptoms have markedly improved after treatment. 08/10 07:41 Order name: CBC with Diff; Complete Time: 09:29 [facility] 08/10 07:41 Order name: CMP; Complete Time: 09:29 [facility] 08/10 07:41 Order name: Lipase; Complete Time: 09:29 ma2 08/10 07:41 Order name: Urine Microscopic Only; Complete Time: 09:29 wa2 08/10 08:00 Order name: Urine Dipstick-Ancillary; Complete Time: 09:29 ED[facility] 08/10 09:39 Order name: Urine --Ancillary (enter results) eb 08/10 07:41 Order name: CT Abd/Pelvis - IV Contrast Only; Complete Time: 10:06 [facility] 08/10 07:41 Order name: IV Saline Lock; Complete Time: 08:02 [facility] 08/10 07:41 Order name: Labs collected and sent; Complete Time: 08:02 [facility] 08/10 07:41 Order name: Urine Dipstick-Ancillary (obtain specimen); Complete Time: 08:02 [facility] 08/10 07:41 Order name: Urine Test (obtain specimen); Complete Time: 08:02 wa2 Administered Medications: 08:02 Drug: NS 0.9% 1000 ml Route: IV; Rate: 1 bolus; Site: right antecubital; garcia 08:02 Drug: Zofran (Ondansetron) 4 mg Route: IVP; Site: right antecubital; garcia 08:02 Follow up: Response: No adverse reaction garcia 08:02 Drug: morphine 4 mg Route: IVP; Infused Over: 4 mins; Site: right antecubital; garcia 08:02 Follow up: Response: No adverse reaction garcia Disposition Summary: 08/10/21 10:09 Discharge Ordered Location: Home ma2 Condition: Stable ma2 Diagnosis - Abdominal pain, unspecified ma2 Followup: ma2 - With: Private Physician - When: Tomorrow - Reason: If symptoms return, Continuance of care Discharge Instructions: - Discharge Summary Sheet ph - Abdominal Pain, Adult ma2 Forms: - School release form ph - Medication Reconciliation Form ma2 - Thank You Letter ma2 - Antibiotic Education ma2 - Prescription Opioid Use ma2 Prescriptions: - Colace 100 mg Oral Tablet - take 1 tablet by ORAL route every 12 hours; 14 tablet; Refills: 0, Product ma2 Selection Permitted - Diclofenac Sodium 75 mg Oral Tablet Sustained Release - take 1 tablet by ORAL route 2 times per day; 30 tablet; Refills: 0, Product ma2 Selection Permitted Signatures: Dispatcher [employer] Kathi Latham, RN Aleah Albert MD MD [facility] Sheryl Pascual RN RN
--- NOTE | 2021-08-10 10:09 | ER ---
Nurse's Notes [facility] Name: Jonatan Gray Age: 31 yrs Sex: Female : 1990 Arrival Date: 08/10/2021 Time: 07:22 Bed 19 Private MD: Diagnosis: Abdominal pain, unspecified Presentation: 08/10 07:36 Chief complaint: Patient states: RLQ pain X 3 -4 days vomiting since this morning. iw Coronavirus screen: Client presents with at least one sign or symptom that may indicate coronavirus-19. Ebola Screen: Patient negative for fever greater than or equal to 101.5 degrees Fahrenheit, and additional compatible Ebola Virus Disease symptoms Patient denies exposure to infectious person. Patient denies travel to an Ebola-affected area in the 21 days before illness onset. No symptoms or risks identified at this time. Initial Sepsis Screen: Does the patient meet any 2 criteria? No. Patient's initial sepsis screen is negative. Does the patient have a suspected source of infection? No. Patient's initial sepsis screen is negative. Risk Assessment: Do you want to hurt yourself or someone else? Patient reports no desire to harm self or others. Onset of symptoms was August 06, 2021. 07:36 Method Of Arrival: Wheelchair iw 07:36 Acuity: JAVIER 3 iw Triage Assessment: 10:31 General: Appears in no apparent distress. Behavior is calm, cooperative, anxious. Pain: garcia Complains of pain in abdomen. GI: Bowel sounds present X 4 quads. Reports nausea, Pain is 10 out of 10 on a pain scale. vomiting. 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 - Social history:: Smoking status: Smoking status: Patient/guardian denies using tobacco, Stopped _ months ago 6. - Family history:: not pertinent. Screenin:31 Abuse screen: Denies threats or abuse. Denies injuries from another. Nutritional garcia screening: No deficits noted. Tuberculosis screening: No symptoms or risk factors identified. Fall Risk None identified. Assessment: 10:32 GI: Abd is soft and non tender X 4 quads. Reports nausea, vomiting. garcia Vital Signs: 07:38 BP 135 / 94; Pulse 88; Resp 16; Temp 97.0; Pulse Ox 100% on R/A; iw 09:12 BP 118 / 81; Pulse 41; Resp 17; Pulse Ox 99% on R/A; garcia ED Course: 07:22 Patient arrived in ED. rg4 07:37 Triage completed. iw 07:39 Aleah Rios MD is Attending Physician. ma2 07:41 Sheryl Pascual, RN is Primary Nurse. garcia 09:36 CT Abd/Pelvis - IV Contrast Only In Process Unspecified. EDMS 10:31 Patient has correct armband on for positive identification. Bed in low position. garcia 10:31 Arm band placed on. garcia 10:31 No provider procedures requiring assistance completed. Inserted saline lock: 20 gauge garcia in right antecubital area, using aseptic technique. IV discontinued, intact, Pressure dressing applied. Administered Medications: 08:02 Drug: NS 0.9% 1000 ml Route: IV; Rate: 1 bolus; Site: right antecubital; garcia 08:02 Drug: Zofran (Ondansetron) 4 mg Route: IVP; Site: right antecubital; garcia 08:02 Follow up: Response: No adverse reaction garcia 08:02 Drug: morphine 4 mg Route: IVP; Infused Over: 4 mins; Site: right antecubital; garcia 08:02 Follow up: Response: No adverse reaction garcia Medication: 10:33 VIS not applicable for this client. garcia Outcome: 10:09 Discharge ordered by . ne2 10:31 Discharged to home ambulatory. garcia 10:31 Condition: good 10:31 Discharge instructions given to patient, Prescriptions given X 2. 10:33 Patient left the ED. garcia Signatures: Dispatcher [employer] EDKathi Cheema, Rachel Cagle RN rg4 Aleah Rios MD MD ma2 Au-Stager, Heather, RN RN garcia
[2021-08-10 11:05] VITALS: TEMP 97
[2021-08-10 11:07] VITALS: BP 118/81; O2SAT 99
== END 2021-08-10 10:33 | disposition home or self-care (01) ==
LOC: ER 07:22
DX: R10.31 Right lower quadrant pain (principal); Z88.5 Allergy status to narcotic agent
CPT/HCPCS: 85025; 36415; 81025; 83690; 80053; 74177; 96375; 96374; 99284; Q9967; J7030; J2405; 81003; 81015